=== PATIENT | female | born 2000 | race Caucasian/White ===

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

== ENCOUNTER 2019-12-13 01:26 | Day surgery (SDC) | payer SELFPAY ==
[2019-12-13] MEDS ORDERED: Ketorolac Tromethamine 30 MG/ML VIAL ONE ×2 (02:55→11:38)
[2019-12-13] MEDS ORDERED: Ondansetron PF 4 MG/2 ML Vial ONE ×2 (02:55→11:38)
[2019-12-13] MEDS ORDERED: Lidocaine 2% w/Epinephrine 1:200K 20 ML VIAL ONE (04:04)
[2019-12-13] MEDS ORDERED: Bupivacaine PF 0.5% 30 ML VIAL ONE (04:04)
[2019-12-13] MEDS ORDERED: Fentanyl 100 MCG/2 ML VIAL ONE ×2 (04:11→07:08)
[2019-12-13] MEDS ORDERED: Midazolam HCl 2 mg/2 ml Vial ONE ×2 (04:11→04:17)
[2019-12-13] MEDS ORDERED: HYDROmorphone 0.5 MG/0.5 ML SYRINGE ONE (04:11)
[2019-12-13] MEDS ORDERED: Scopolamine 1.5 mg/72 hour Patch ONE (04:12)
[2019-12-13] MEDS ORDERED: Promethazine HCl 25 MG/ML VIAL ONE ×2 (04:12→07:09)
[2019-12-13] MEDS ORDERED: Meperidine HCl/PF 25 MG/ML VIAL ONE (06:55)
[2019-12-13] MEDS ORDERED: HYDROcodone/Acetaminophen 5/325 mg Tablet ONE (08:14)
--- NOTE | 2019-12-13 08:16 | ULT ---
PRELIMINARY REPORT/[facility]/EMERGENCY AFTER HOURS PROCEDURE: EXAM: US Pelvis, Complete. CLINICAL HISTORY: HX: PELVIC PAIN. SEE NOTES ON LAST IMAGE. THANKS TECHNIQUE: Transvaginal pelvic ultrasound (complete) with image documentation. COMPARISON: None provided. FINDINGS: ENDOMETRIUM: Normal thickness. UTERUS/CERVIX: Normal size and contour. No fibroid detected. Measures 8.5 x 4.2 cm and appears to be retroverted RIGHT OVARY: Normal follicles. No adnexal mass. Normal blood flow. Measures 7.2 x 4.6 x 3.5 cm and demonstrates a 6.6 x 3.2 x 2.8 cm hemorrhagic cyst LEFT OVARY: Normal follicles. No adnexal mass. Normal blood flow. Measures 3.0 x 2.2 x 1.7 cm FREE FLUID: Moderate cul-de-sac free fluid. IMPRESSION: Complex RIGHT ovarian hemorrhagic cyst with pelvic free fluid ELECTRONICALLY SIGNED BY: Kd Thompson MD Dec 13, 2019 3:57:49 AM CDT This report is intended for review by the ordering physician only, in accordance of law. If you recei ve this report in error, please call [facility] at [phone]. FINAL REPORT TRANSVAGINAL PELVIC ULTRASOUND WITH DAVIDSON SCALE AND COLOR FLOW AND SPECTRAL DOPPLER IMAGING: I agree with the preliminary report given by [facility].
--- NOTE | 2019-12-13 08:43 | OP ---
DATE OF PROCEDURE: 12/13/2019 PREOPERATIVE DIAGNOSES: 1. Acute pelvic pain. 2. Pelvic mass. 3. Suspected ovarian torsion. POSTOPERATIVE DIAGNOSES: Ruptured hemorrhagic ovarian cyst on the right side, hemoperitoneum, endometriosis. PROCEDURES PERFORMED: Diagnostic laparoscopy with right cystectomy and evacuation of hemoperitoneum. ANESTHESIA: General. ESTIMATED BLOOD LOSS: 100 mL. COMPLICATIONS: None. CONDITION: Stable to recovery room. COUNTS: Correct. DESCRIPTION OF PROCEDURE: Ms. Xiang Negro is a 19-year-old female, who is re-presenting to the emergency room with a 2-day history of acute onset worsening abdominal pain. After evaluation in the emergency room, I was called to the room with a 7-cm right ovarian cyst on ultrasound with free fluid in the pelvis. Based on findings, on physical exam and on ultrasound and on the patient's history, there was some concern that the patient had an intermittent ovarian torsion. The patient was discussed the options of expectant versus surgical management including the risks and benefits of each. The patient has opted for surgery. We took her to the operating room, placed under general anesthesia without difficulty and placed in dorsal lithotomy position in [facility]. She was prepared and draped in normal sterile fashion. Attention was placed vaginally, where uterine manipulator and single-tooth tenaculum were applied. Attention was placed abdominally. A 5-mm skin incision was made in the base of the umbilicus. A Veress needle was introduced with proper placement confirmed by drop test. The abdomen was insufflated to 15 mmHg. Two additional incisions were made, one suprapubic midline and a third one lateral to the umbilicus. Ports were placed under direct visualization in these two locations after laparoscope was successfully placed into the peritoneal cavity. The inspection of the peritoneum revealed a ruptured right ovary with blood and fluid collected in the posterior cul-de-sac. The ovary was deflated, but enlarged and was still bleeding from the ruptured site. With laparoscopic scissors, the ruptured site was then extended laterally to access the cyst wall with use of blunt tissue graspers and Maryland's. The cyst wall was excised out of the ovary bluntly with grasping the edge of the cyst wall at the location of the incision and counter traction, peeling it away from the ovarian tissue. Once this was completed, the patient was noted to have bleeding over the cyst bed and attempts were made to use [place] monopolar's, however, the monopolars were not functioning needing the grasping affected both instruments. A LigaSure device was then utilized in an attempt to coagulate the bed of the ovarian cyst. However, given the location and the difficulty in manipulating though, the large distended ovary and the limitations of the bipolar instrument, the patient continued to have some bleeding from within the ovary. Jason was then utilized to aid in hemostasis, resulting in satisfactory hemostasis. The abdomen or pelvis was then irrigated and evacuated of all bleeding and fluid. By this time, the cyst wall, which had been collected in the anterior cul-de-sac had inadvertently washed away and was not visible. The procedure at this time was completed. The abdomen was deflated and the incision sites were closed with 4-0 Monocryl and injected with lidocaine and Marcaine mixture. The patient tolerated the procedure well. The patient was taken out of lithotomy position. Once the uterine manipulator and single-tooth tenaculum were removed and good hemostasis was noted on the cervix, the patient was extubated and taken to recovery room in stable condition. Job ID: [id number] [facility]
[2019-12-13] MEDS ORDERED: Lidocaine 1% PF 5 ML VIAL ONE (11:38)
[2019-12-13] MEDS ORDERED: EPHEDRINE 25 MG/5 ML SYRINGE ONE (11:38)
[2019-12-13] MEDS ORDERED: PROPOFOL 200 MG/20 ML VIAL ONE (11:38)
[2019-12-13] MEDS ORDERED: Dexamethasone 20 MG/5 ML VIAL ONE (11:38)
[2019-12-13] MEDS ORDERED: Rocuronium Bromide 10 MG/ML (10ML VIAL) ONE (11:38)
== END 2019-12-13 09:10 | disposition home or self-care (01) ==
LOC: ERS 01:26 → SDC/OP 04:52
PROVIDERS: ATTEND Obstetrics & Gynecology
PROC: 0UB04ZZ Excision of Right Ovary, Percutaneous Endoscopic Approach (ICD-10-PCS; principal; 2019-12-13)
DX: N83.201 Unspecified ovarian cyst, right side (principal); K66.1 Hemoperitoneum; N80.9 Endometriosis, unspecified; Z91.018 Allergy to other foods
CPT/HCPCS: 76856; J1100; J1170; J1885; J2175; J2250; J2405; J2550; J2704; J3010; S0020

== ENCOUNTER 2020-04-08 10:41 | Emergency (ER) | payer BC, SELFPAY ==
[2020-04-08] MEDS ORDERED: Morphine 4 MG/ML VIAL ONE ×2 (11:04→13:01)
[2020-04-08] MEDS ORDERED: Ondansetron PF 4 MG/2 ML Vial ONE (11:04)
[2020-04-08 11:09] LABS: #Basophils 0.1 thou/uL (0.0-0.2); #Lymphocytes 2.8 thou/uL (1.20-3.40); #Monocytes 0.6 thou/uL (0.11-0.59); #Neutrophils 5.8 thou/uL (1.40-6.50); %Basophils 0.7 % (0.0-1.0); %Eosinophils 0.2 % (0.0-10.0); %Lymphocytes 29.8 % (28.0-48.0); %Monocytes 6.7 % (0.0-4.0); %Neutrophils 62.6 % (31.0-61.0); Hemoglobin 13.6 g/dL (12.0-16.0); Mean Corpuscular HGB CONC 33.6 g/dL (32.0-36.0); Mean Corpuscular Hemoglobin 26.7 pg (25.0-35.0); Mean Corpuscular Volume 79.6 fL (78.0-98.0); Mean Platelet Volume 8.5 fL (7.4-10.4); Platelet Count 314 thou/uL (130-400); RBC Distribution Width 14.7 % (11.5-14.5); Red Blood Cell (RBC) Count 5.08 mill/uL (4.00-5.20); White Blood Cell (WBC) Count 9.2 thou/uL (4.8-10.8)
[2020-04-08 11:31] LABS: BHCG - Serum Negative (NEGATIVE); Pregs Control Background? CLEAR/WHITE (CLR/WHITE); Pregs Control Bar Appear? YES (CONTROL BAR)
[2020-04-08 11:34] LABS: ALT (SGPT) 19 U/L (8-55); AST (SGOT) 21 U/L (5-34); Albumin 4.6 g/dL (3.5-5.0); Alkaline Phosphatase 62 U/L (40-100); Anion Gap 16 mmol/L (10-20); BUN (Urea Nitrogen) 8 mg/dL (7.0-18.7); Bilirubin, Total 0.4 mg/dL (0.2-1.2); Calc. Creatinine Clearance 0 mL/min (70-130); Calcium 9.2 mg/dL (7.8-10.44); Carbon Dioxide 23 mmol/L (22-29); Chloride 104 mmol/L (98-107); Estimated GFR-MDRD Greater than 90; Globulin 3.7 g/dL (2.4-3.5); Glucose 87 mg/dL (70-105); Potassium 4.1 mmol/L (3.5-5.1); Protein, Total 8.3 g/dL (6.0-8.3); Sodium 139 mmol/L (136-145)
--- NOTE | 2020-04-08 11:43 | ULT ---
ULTRASOUND TRANSVAGINAL DOPPLER DUPLEX: DATE: 04/08/2020 HISTORY: 19-year-old female with right pelvic pain TECHNIQUE: endovaginal transducer used to visualize intrapelvic contents with grayscale, color-flow, and spectra l analysis. FINDINGS: Uterus:6.5 x 5 x 6 cm. Retroverted.. Endometrial stripe:1 cm (10 mm). Right ovary:3.9 x 2.7 cm.. Left ovary:4 x 2.1 x 3.7 cm.. There are prominent left adnexal blood vessels, nonspecific. Uterine leiomyoma (fibroid): None Blood flow in ovaries: Demonstrated bilaterally. Ovarian cyst: No cyst 2 cm or larger. Free fluid in the cul-de-sac: Minimal amount. IMPRESSION: No major pathology identified.
[2020-04-08 12:44] LABS: Bacteria/HPF None Seen HPF (None Seen); Bilirubin Negative (Negative); Blood, Urine 2+ (Negative); Clarity Clear (Clear); Glucose, Urine (Dipstick) Normal (Negative); Ketone, Urine Negative (Negative); Leukocyte Negative Leu/uL (Negative); Nitrite Negative (Negative); Protein, Urine (Dipstick) Negative (Neg-Trace); RBC/HPF 0-3 HPF (0-3); Squamous Epithelial 0-3 HPF (0-3); Urobilinogen Normal mg/dL (Less than 2); pH, Urine 7.5 (5.0-9.0)
--- NOTE | 2020-04-08 13:07 | CT ---
EXAM: Abdomen and pelvic CT scan with contrast: HISTORY: Right lower quadrant pain COMPARISON: Pelvic ultrasound 04/08/2020 FINDINGS: Lungs:No significant acute process. Liver: Unremarkable. Gallbladder:Unremarkable. Common bile duct:Normal Pancreas:Unremarkable Spleen:Unremarkable. Adrenal glands:Unremarkable. Kidneys:No renal calculus or acute obstruction. No solid or cystic renal mass. No evidence for bowel obstruction. Aorta:No evidence for aneurysm. Spine:Minimal disc protrusion at L4-L5. 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 Normal-appearing appendix. The urinary bladder is unremarkable. Reproductive system:Unremarkable as visualized. Hernias:None No abscess, adenopathy, or abnormal fluid collection within the abdomen or pelvis. IMPRESSION: No significant acute process in the abdomen or pelvis.
[2020-04-08] MEDS ORDERED: Lidocaine 1% PF 5 ML VIAL ONE (13:47)
[2020-04-08] MEDS ORDERED: cefTRIAXone\\ROCEPHIN 250 MG VIAL ONE (13:47)
[2020-04-08] MEDS ORDERED: Iopamidol-370 76% 500 ML 1 ML ONE (14:26)
[2020-04-11 20:58] LABS: Chlamydia by PCR Not Detected (NotDetected); GC by PCR Not Detected (NotDetected)
== END 2020-04-08 14:27 | disposition home or self-care (01) ==
LOC: ERS 10:41
DX: N73.9 Female pelvic inflammatory disease, unspecified (principal); R11.2 Nausea with vomiting, unspecified; F17.200 Nicotine dependence, unspecified, uncomplicated
CPT/HCPCS: 74177; 76856; 80053; 81003; 81015; 84703; 85025; 87480; 87491; 87510; 87591; 87660; 96372; 96374; 96375; 96376; J0696; J2270; J2405; Q9967

== ENCOUNTER 2020-12-10 22:14 | Emergency (ER) | payer SELFPAY ==
[2020-12-10] MEDS ORDERED: Morphine 10 MG/ML VIAL ONE (23:44)
[2020-12-10] MEDS ORDERED: Ondansetron ODT 8 MG TAB ONE (23:45)
[2020-12-11 00:23] LABS: Bacteria/HPF None Seen HPF (None Seen); Bilirubin Negative (Negative); Blood, Urine Negative (Negative); Clarity Clear (Clear); Glucose, Urine (Dipstick) Normal (Negative); Ketone, Urine Negative (Negative); Leukocyte 500 Leu/uL (Negative); Nitrite Negative (Negative); Pregnancy Test - Urine (BHCG) Negative (Negative); Protein, Urine (Dipstick) 10 mg/dL (Neg-Trace); RBC/HPF 0-3 HPF (0-3); Specific Gravity 1.021 (1.002-1.036); Specific Gravity, Urine 1.024 (1.002-1.036); Urobilinogen Normal mg/dL (Less than 2); pH, Urine 5.5 (5.0-9.0)
[2020-12-11 00:24] LABS: Pregu Control Background? CLEAR/WHITE (CLR/WHITE); Pregu Control Bar Appear? YES (CONTROL BAR)
== END 2020-12-11 01:19 | disposition home or self-care (01) ==
LOC: ERS 22:14
DX: N83.202 Unspecified ovarian cyst, left side (principal); F17.200 Nicotine dependence, unspecified, uncomplicated
CPT/HCPCS: 76856; 81003; 81015; 81025; 96372; J2270; Q0162